=== PATIENT | male | born 1990 | race Caucasian/White ===

== ENCOUNTER 2019-01-31 15:58 | Emergency (ER) | payer BC ==
[~2019-01-31] VITALS: Wt 60.7 kg
[~2019-01-31 15:58] MED LIST: CLON0.5T4 PO; DIC20 PO; ESOM20CA PO; LOPE2CAP PO; ONDA4TAB13 PO; ONDA4TAB14 PO; PANT20TA2 PO; SUCR1TAB56 PO; ZONEGRAN; ZONI100C48 PO; klonopin; zofran
[2019-01-31] MEDS ORDERED: ONDANSETRON 4 MG INJ IV STA ×2 (16:54→20:38)
[2019-01-31] MEDS ORDERED: SODIUM CHLORIDE 0.9% 1L BAG IV* STA (16:54)
[2019-01-31] MEDS ORDERED: PANTOPRAZOLE 40 MG INJ IV ONE (17:00)
[2019-01-31] MEDS ORDERED: LOPERAMIDE 2 MG CAP PO ONE (17:00)
[2019-01-31] MEDS ORDERED: METOCLOPRAMIDE 10 MG INJ IV ONE (17:00)
[2019-01-31] MEDS ORDERED: SOD CHLORIDE 0.9% 1,000 ML IV ONE (19:30)
[2019-01-31 21:10] VITALS: BP 99/69; PULSE 75; RESP 24
== END 2019-01-31 21:10 | disposition home or self-care (01) ==
LOC: E/R 15:58
DX: E86.0 Dehydration (principal); R10.9 Unspecified abdominal pain
CPT/HCPCS: 36415; 71045; 74176; 80053; 80307; 83605; 84484; 85025; 85610; 85730; 87040; 93005; 96374; 96375; 96376; C9113; J2405; J2765; J7030; Z7502; Z7610